=== PATIENT | male | born 1995 | race Two or more races ===

== ENCOUNTER 2022-12-30 14:10 | Emergency (ER) | payer BC, OTHER ==
[~2022-12-30] VITALS: Ht 177.8 cm; Wt 97.7 kg
[2022-12-30 15:17] LABS: Amphetamine Screen, Urine Neg (NEGATIVE); Benzodiazephine Screen, Urine Neg (NEGATIVE)
[2022-12-30 15:18] LABS: Barbiturate Scree,Urine Neg (NEGATIVE); Cannabinoid Screen, Urine Pos (NEGATIVE); Cocaine Screen, Urine Neg (NEGATIVE); Opiate Scree,Urine Neg (NEGATIVE); Phencyclidine Screen, Urine Neg (NEGATIVE)
[2022-12-30 15:19] LABS: Acetaminophen < 2.0 UG/ML (10.0-20.0)
[2022-12-30 15:20] VITALS: PULSE 96; RESP 16; O2SAT 96
[2022-12-30 15:23] LABS: Salicylate < 3.0 mg/dL (2.8-20.0)
[2022-12-30] MEDS ORDERED: OLANZapine 5 MG TAB PO SCH (22:00)
[2022-12-30 23:10] LABS: Basophils # (auto) 0 10 ^3/uL (0-0.2); Basophils % (auto) 0.3 % (0.0-2.0); Eosinophils # (auto) 0.2 10 ^3/uL (0-0.8); Hematocrit 44.4 % (41.0-53.0); Hemoglobin 15.2 g/dL (13.5-17.5); Lymphocytes # (auto) 2.6 10 ^3/uL (0.4-5.4); Lymphocytes % (auto) 22.2 % (10.0-50.0); Mean Corpuscular Hemoglobin 27.1 pg (28.0-32.0); Mean Corpuscular Hgb Conc. 34.2 g/dL (32.0-36.0); Mean Corpuscular Volume 79.2 fL (80.0-100.0); Monocytes # (auto) 1.1 10 ^3/uL (0-1.3); Monocytes % (auto) 9.8 % (0.0-12.0); Neutrophils # (auto) 7.6 10 ^3/uL (1.6-8.6); Neutrophils % (auto) 65.7 % (37.0-80.0); Nucleated Red Blood Cells % 0.1 %; Red Cell Distribution Width 14.1 % (11.8-14.3); White Blood Cell 11.6 10^3/uL (4.4-10.8)
[2022-12-30 23:25] LABS: Alanine Aminotransferase 23 U/L (7-40); Albumin 4.9 g/dL (3.2-4.8); Alkaline Phosphatase 80 U/L (46-116); Anion Gap 10 (5-15); Aspartate Aminotransferase 14 U/L (13-40); BUN/Creatinine Ratio 7.6 (10.0-20.0); Blood Alcohol < 3.0 mg/dL (<10); Blood Urea Nitrogen 6 mg/dL (9-23); Calcium 9.5 mg/dL (8.7-10.4); Carbon Dioxide 23 mmol/L (20-30); Chloride 108 mmol/L (98-107); Glucose 97 mg/dL (74-106); Lipase 44 U/L (12-53); Magnesium 2.3 mg/dL (1.6-2.6); Potassium 3.5 mmol/L (3.5-5.1); Sodium 141 mmol/L (136-145)
[2022-12-30 23:26] LABS: Bilirubin, Total 0.8 mg/dL (0.2-1.0); Total Protein 8.3 g/dL (5.7-8.2)
[2022-12-30 23:27] LABS: Acetaminophen < 2.0 UG/ML (10.0-20.0)
[2022-12-30 23:32] LABS: Salicylate < 3.0 mg/dL (2.8-20.0)
[2022-12-31 01:14] VITALS: PULSE 56; RESP 14; O2SAT 94
[2022-12-31] MEDS ORDERED: SODIUM CHLORIDE 0.9% 2,000 ML IV ONE (01:30)
[2022-12-31] MEDS ORDERED: ATROPINE SULF 1 MG/10ml SYR IV ONE ×2 (01:45→04:45)
[2022-12-31] MEDS ORDERED: MAGNESIUM SULFATE 1GM/100ML 100 ML IV ONE (01:45)
[2022-12-31] MEDS ORDERED: ATROPINE SULFATE 1 MG/1 ML VIAL ONE (02:31)
[2022-12-31] MEDS: FLUoxetine HCL 20 MG CAP PO SCH (10:56)
[2022-12-31 19:45] VITALS: PULSE 80; RESP 12; O2SAT 98
[2023-01-01 07:17] VITALS: PULSE 70; RESP 17; O2SAT 98
[2023-01-01] MEDS: FLUoxetine HCL 20 MG CAP PO SCH (10:54)
[2023-01-02] MEDS ORDERED: diphenhdrAMINE HCL 25 MG CAP PO ONE (01:00)
[2023-01-02 02:46] VITALS: BP 163/98; PULSE 63; RESP 17; TEMP 98.1; O2SAT 96
== END 2023-01-02 03:27 | disposition short-term general hospital (02) ==
LOC: EDBD 14:10 → ER 14:10
DX: R45.851 Suicidal ideations (principal); F12.10 Cannabis abuse, uncomplicated; R07.89 Other chest pain
CPT/HCPCS: 36415; 80053; 80307; 80320; 80329; 83690; 83735; 84484; 85025; 93005; 96365; 96375; 96376; 99285; J0461; J3475; J7030